=== PATIENT | female | born 1955 | race Caucasian/White ===

== ENCOUNTER 2018-09-05 21:54 | Emergency (ER) | payer OTHER, MEDICAID ==
[~2018-09-05] VITALS: Ht 175.3 cm; Wt 59.6 kg
[2018-09-06] VITALS: BP 120/74
== END 2018-09-06 | disposition home or self-care (01) ==
LOC: ED 21:54
DX: S93.601A Unspecified sprain of right foot, initial encounter (principal); E03.9 Hypothyroidism, unspecified; N28.9 Disorder of kidney and ureter, unspecified; Z88.2 Allergy status to sulfonamides; Z88.6 Allergy status to analgesic agent; Y93.89 Activity, other specified; X50.1XXA Overexertion from prolonged static or awkward postures, initial encounter; Y92.89 Other specified places as the place of occurrence of the external cause; Y99.8 Other external cause status
CPT/HCPCS: Q0092

== ENCOUNTER 2020-04-15 13:37 | Emergency (ER) | payer OTHER ==
[~2020-04-15] VITALS: Ht 175.3 cm; Wt 54.9 kg
[2020-04-15 13:50] VITALS: Ht 175.3 cm; Wt 54.9 kg
[2020-04-15 15:29] LABS: BASOPHIL % 0.4 % (0-2); PLATELET COUNT 253 x10^3mcL (130-400); RED CELL DISTRIBUTION WIDTH 13.9 % (11.5-14.5)
[2020-04-15 15:47] LABS: CALCIUM 9.3 mg/dL (8.5-10.1); CARBON DIOXIDE 27.3 mmol/L (21-32); CREATININE SERUM 1.8 mg/dL (0.6-1.0); POTASSIUM SERUM 4.6 mmol/L (3.5-5.1)
[2020-04-15 15:52] LABS: ALBUMIN 3.3 g/dL (3.4-5.0); BILIRUBIN TOTAL 0.4 mg/dL (0.20-1.00)
[2020-04-15 16:31] VITALS: BP 128/76
== END 2020-04-15 16:57 | disposition short-term general hospital (02) ==
LOC: ED 13:37
PROVIDERS: Emergency Medicine
DX: S01.01XA Laceration without foreign body of scalp, initial encounter (principal); N18.3 Chronic kidney disease, stage 3 (moderate); E03.9 Hypothyroidism, unspecified; Z88.2 Allergy status to sulfonamides; Z88.6 Allergy status to analgesic agent; X58.XXXA Exposure to other specified factors, initial encounter; Y93.89 Activity, other specified; Y92.89 Other specified places as the place of occurrence of the external cause; Y99.8 Other external cause status
CPT/HCPCS: 90715; J1953